=== PATIENT | female | born 1975 | race Caucasian/White ===

== ENCOUNTER 2016-12-03 05:55 | Day surgery (SDC) | payer SELFPAY ==
[2016-12-02 13:32] LABS: BASOPHILS % (AUTO) 0.5 % (0.0-2.0); EOSINOPHILS # (AUTO) 0.3 K/uL (0.0-0.4); EOSINOPHILS % (AUTO) 2.8 % (0.0-4.0); HEMATOCRIT 38.6 % (36-48); HEMOGLOBIN 13.4 g/dL (12.0-16.0); LYMPHOCYTES # (AUTO) 1.6 K/uL (1.0-5.5); LYMPHOCYTES % (AUTO) 17.5 % (20.5-51.5); MEAN CORPUSCULAR HEMOGLOBIN 29 pg (27-31); MEAN CORPUSCULAR HGB CONC 35 % (32-36); MEAN CORPUSCULAR VOLUME 85 fL (79.0-98.0); MONOCYTES # (AUTO) 0.5 K/uL (0.0-1.0); MONOCYTES % (AUTO) 5.8 % (1.7-9.3); NEUTROPHILS # (AUTO) 6.7 K/uL (1.8-7.7); NEUTROPHILS % (AUTO) 73.4 % (40.0-70.0); PLATELET COUNT (AUTO) 312 K/uL (130-430); RED BLOOD CELL COUNT(AUTO) 4.54 MIL/uL (4.2-6.2); RED CELL DISTRIBUTION WIDTH 12.5 % (9.0-15.0); WHITE BLOOD COUNT (AUTO) 9.1 K/uL (4.8-10.8)
[2016-12-02 13:39] LABS: BILIRUBIN,URINE NEGATIVE (NEGATIVE); BLOOD, URINE NEGATIVE (NEGATIVE); CLARITY/URINE CLEAR (CLEAR); COLOR,URINE YELLOW (YELLOW); GLUCOSE,URINE NEGATIVE (NEGATIVE); KETONES,URINE NEGATIVE (NEGATIVE); LEUKOCYTE ESTERASE ,URINE NEGATIVE (NEGATIVE); NITRITE, URINE NEGATIVE (NEGATIVE); PH,URINE 7.5 (5.0-8.0); PROTEIN URINE TRACE (NEGATIVE)
[2016-12-02 13:44] LABS: HCG,QUAL RESULT NEGATIVE (NEGATIVE); PROTHROMBIN TIME 10.5 SECS (9.5-12.5)
[2016-12-02 13:45] LABS: BACTERIA,URINE RARE /HPF (None Seen); RBC,URINE 0-3 /HPF (0-3); WBC,URINE 0-3 /HPF (0-3)
[2016-12-02 13:46] LABS: MUCUS,URINE 1+ /LPF (None Seen)
[2016-12-02 15:01] LABS: CALCIUM 8.8 mg/dL (8.4-11.0); CREATININE 0.54 mg/dL (0.55-1.30); POTASSIUM 3.8 mmol/L (3.5-5.1)
[~2016-12-03] VITALS: Ht 165.1 cm; Wt 83.9 kg
[2016-12-03 07:03] VITALS: O2SAT 100
[2016-12-03] MEDS ORDERED: CEFAZOLIN SOD 2 GM in D5W 50 ML IV ONE (08:00)
[2016-12-03] MEDS ORDERED: LR 1,000 ML IV SCH (08:10)
[2016-12-03] MEDS ORDERED: HYDROmorphone 2 MG/ML VIAL IVP PRN ×2 (08:15)
[2016-12-03] MEDS ORDERED: MEPERIDINE HCL/PF 25 MG/ML DISP.SYRIN IVP PRN (08:15)
[2016-12-03] MEDS ORDERED: HYDROmorphone 1 MG INJ. 1 MG/ML AMPUL IVP PRN (08:15)
[2016-12-03] MEDS ORDERED: PROMETHAZINE HCL 25 MG/ML AMP IM PRN (08:30)
[2016-12-03] MEDS ORDERED: HYDROcodone/ACETAMIN 5-325 MG TAB (NORCO/ VICODIN) PO PRN ×2 (08:30)
[2016-12-03 09:27] VITALS: BP 116/72; PULSE 64; RESP 16
[2016-12-03] MEDS ORDERED: ONDANSETRON HCL 4 MG/2 ML VIAL ONE (14:00)
[2016-12-03] MEDS ORDERED: PHENYLEPHRINE HCL 10 MG/ML VIAL (NEOSYNEPHRINE) ONE (14:00)
[2016-12-03] MEDS ORDERED: fentaNYL CITRATE 250 MCG/5 ML AMP ONE (14:00)
[2016-12-03] MEDS ORDERED: ROCURONIUM BROMIDE 10 MG/ML (ZEMURON) ONE (14:00)
[2016-12-03] MEDS ORDERED: SEVOFLURANE 15 MIN GAS INH ONE (14:00)
[2016-12-03] MEDS ORDERED: PROPOFOL 200MG/ 20ML VIAL (DIPRIVAN) IV ONE (14:00)
[2016-12-03] MEDS ORDERED: NORMAL SALINE 10 ML VIAL ONE (14:00)
[2016-12-03] MEDS ORDERED: MIDAZOLAM HCL 5 MG/5 ML VIAL ONE (14:00)
[2016-12-03] MEDS ORDERED: DEXAMETHASONE SOD PHOSPHATE 4 MG/ML VIAL ONE (14:00)
[2016-12-03] MEDS ORDERED: KETOROLAC TROMETHAMINE 30 MG VIAL ONE (14:00)
[2016-12-03] MEDS ORDERED: NS IRRIG SOLN 5000 ML IR ONE (14:00)
== END 2016-12-03 10:20 | disposition home or self-care (01) ==
LOC: STU 05:55 → SDS 05:55 → SMU 07:00 → SDS 10:20
PROVIDERS: ATTEND Obstetrics & Gynecology Gynecology
DX: N84.0 Polyp of corpus uteri (principal); R51 Headache; F32.9 Major depressive disorder, single episode, unspecified; Z90.49 Acquired absence of other specified parts of digestive tract; E11.9 Type 2 diabetes mellitus without complications; F41.9 Anxiety disorder, unspecified; D50.9 Iron deficiency anemia, unspecified
CPT/HCPCS: 36415; 58558; 80048; 81000; 82962; 84703; 85025; 85610; 85730; 86886; 86900; 86901; 88305; 93005; C1819; J0690; J1100; J1885; J2250; J2370; J2405; J2704; J3010; J7060; J7120